=== PATIENT | male | born 1950 | race Caucasian/White ===

== ENCOUNTER 2016-10-09 06:42 | Day surgery (SDC) | payer MEDICARE ==
[~2016-10-09] VITALS: Ht 185.4 cm; Wt 97.0 kg
--- NOTE | 2016-10-10 07:52 | OR ---
ADMIT: 10/09/2016 RM/LOC: [facility] MR#: [id number] [address] [id number] KAITLYNN SHELDON [address] [place] [address] Operative/Delivery Room Report SEX: M AGE: 66 : 1950 SURGERY DATE: 10/09/2016 SURGEON: Frantz Multani MD PROCEDURE: Total colonoscopy with hot biopsy polypectomy. PREOPERATIVE DIAGNOSIS: Screening colonoscopy. POSTOPERATIVE DIAGNOSIS: Ascending colon polyp. DESCRIPTION OF PROCEDURE: The patient was brought to the procedure room, placed in left lateral decubitus position. Informed consent had been obtained preoperatively. The risks and benefits including, but not limited to, perforation, sedation, bleeding were discussed with patient and the patient agreed upon. All questions were answered, alternatives discussed the patient agreed. Monitored anesthesia care was provided by Brandt De La Cruz CRNA with propofol and alfentanil. Anal inspection, digital examination revealed no abnormalities or obstructing masses. Prostate had been surgically removed. Olympus videoendoscope, model CF-H180AL was inserted into the rectum and advanced into the cecum without difficulty. The appendiceal orifice and ileocecal valve were identified. The valve was cannulated. The terminal ileum appeared normal for 10 cm. Scope was slowly withdrawn through a normal cecum into the mid ascending colon where there was a very small adenomatous appearing polyp that was grasped with the hot biopsy forceps, cauterized, and retrieved. The remainder of the ascending, transverse, descending, sigmoid, and rectum were normal. Scope was retroflexed. The anal verge appeared normal. The patient tolerated the procedure well. No complications were expected. Blood loss was less than 1 mL. He will call me if he has any postoperative problems. Otherwise, if this polyp is adenomatous, would recommend he have repeat colonoscopy in 5 years unless signs or symptoms develop in the interval. Frantz Multani MD/ mary JOB #: [id number] CC: Frantz Multani, Attending Physician Tristian Romero, Family Physician
== END 2016-10-09 09:55 | disposition home or self-care (01) ==
LOC: SSS 06:42
PROC: 0DBK8ZX Excision of Ascending Colon, Via Natural or Artificial Opening Endoscopic, Diagnostic (ICD-10-PCS; principal; 2016-10-09)
DX: Z12.11 Encounter for screening for malignant neoplasm of colon (principal); K63.5 Polyp of colon; I10 Essential (primary) hypertension; E07.9 Disorder of thyroid, unspecified; E78.00 Pure hypercholesterolemia, unspecified; Z79.899 Other long term (current) drug therapy